=== PATIENT | male | born 1975 | race African-American/Black ===

== ENCOUNTER 2023-03-20 12:00 | Observation (INO) | payer BC, OTHER, SELFPAY ==
[2023-03-20] VITALS (9 sets, daily range): BP systolic 158–190; BP diastolic 74–128; PULSE 60–98; RESP 15–20; TEMP 36.4–37.2; O2SAT 94–100; BMI 34.0
--- NOTE | ~2023-03-20 | CT_ITS ---
. EXAMINATION: CT abdomen pelvis w con DATE: 03/20/2023 14:55 INDICATION: Abdominal swelling for 2 months. Vomiting this morning. Abdominal pain. Constipation. TECHNIQUE: Computed tomography (CT) of the abdomen and pelvis was performed with 100 CC Omnipaque 350 intravenous contrast. Automated exposure control and iterative reconstruction technique were employe d. Exam dose: 1304.89 mGy-cm total exam DLP. COMPARISON: None. FINDINGS: The lung bases are clear of infiltrate or consolidation. Heart size is within normal range. No pericardial or pleural effusion. The liver, gallbladder, bile ducts, pancreas, pancreatic duct and spleen are unremarkable. Normal morphology of the adrenal glands. No renal mass lesion or urinary tract calculus or hydroureteronephrosis. Normal caliber of the abdominal aorta. No intraperitoneal or retroperitoneal or pelvic mass lesion or adenopathy or ascites. Normal appendix. There is a moderately prominent of fecal material in the colon. No bowel obstruction, bowel wall thic kening, pneumatosis or intraperitoneal free air is detected. Small fat-containing bilateral inguinal hernias. Small fat-containing umbilical hernia. Moderately severe degenerative disc disease at L5-S1. IMPRESSION: Normal appendix Moderately prominent amount fecal material in the colon; no bowel obstruction Small bilateral fat-containing inguinal hernias and small fat-containing umbilical hernia Reviewed, dictated and finalized at [facility]. Reviewed, dictated and finalized at [facility]. IMPRESSION: Normal appendix Moderately prominent amount fecal material in the colon; no bowel obstruction Small bilateral fat-containing inguinal hernias and small fat-containing umbili eliceo hernia
--- NOTE | 2023-03-20 14:01 | ED.ABDPAIN ---
HPI - Abdominal Pain General Chief Complaint: Abdominal Pain <Ignacia Ritter PA-C - Last Filed: 03/20/23 20:34> Stated Complaint: abd pain/swelling <Ignacia Ritter PA-C - Last Filed: 03/20/23 20:34> Time Seen by Provider: 03/20/23 12:46 <Ignacia Ritter PA-C - Last Filed: 03/20/23 20:34> History of Present Illness HPI narrative: 48-year-old male reports for evaluation of abdominal pain and swelling for the past 3 months. He reports the pain is generalized and is a constant dull pain. He has been evaluated by his primary care physician Dr. Wilson and has has ultrasounds and CTs on his abdomen revealing gallstones in February. He had an appointment with Dr. Eloy Denney (surgery) yesterday regarding evaluation of his gallstones. He reports today because the pain is increased and he has new onset vomiting that started yesterday and into today. Reports 3 episodes of emesis yesterday, 5 today. He reports increased bulging in his abdomen to the left and right side. States his last full bowel movement was approximately 3 to 4 weeks ago. He does report intermittent passing of jaya last time was yesterday. He denies melena, hematochezia, hematemesis, fever, body aches or chills. He does report tingling when he urinates. When asked if it feels like he is peeing out knives he is reports yes. He denies urinary frequency or urgency. States he gets tested for STDs frequently, last test were in January and came back negative. He denies any sexual contact since he was previously STD tested but is opting for STD testing at this time. He denies penile or scrotal lesions, rashes, swelling or pain. <Ignacia Ritter PA-C - Last Filed: 03/20/23 20:34> Related Data Allergies/Adverse Reactions: Allergies Allergy/AdvReac Type Severity Reaction Status Date / Time MEDICATION FOR ANESTHESIA Allergy Unknown PRURITIS Uncoded 03/20/23 14:08 <NICOL Mendoza Last Filed: 03/20/23 20:34> Review of Systems Review of Systems: CONSTITUTIONAL: Denies fever, chills EYES: Denies visual changes, redness, or discharge. ENT: Denies rhinorrhea, congestion, sore throat, or otalgia. CARDIOVASCULAR: Denies chest pain, palpitations, or edema. RESPIRATORY: Denies cough or dyspnea. GASTROINTESTINAL: See HPI GENITOURINARY: See HPI SKIN: Denies rash or itching. MUSCULOSKELETAL: Denies back pain, joint pain, or myalgia. NEUROLOGIC: Denies headache, numbness, dizziness, or weakness. PSYCHIATRIC: Denies anxiety or depression. <Ignacia Ritter PA-C - Last Filed: 03/20/23 20:34> [facility] Family History Family History: Family History (Updated 03/20/23 @ 21:05 by Sofia Hugo RN) Other Unknown family medical history <Ignacia Ritter PA-C - Last Filed: 03/20/23 20:34> Social History Social History: Social History Smoking status: Never smoker Alcohol intake: never Substance use: never Substance use type: does not use Lack of Transportation: No Lack of Food: Never True Current Housing: I Have Housing Concerned About Future Housing: No Difficulty Paying Gas/Electric Bills: No Difficulty Paying for Meds: No Currently Unemployed: No Education: Associate Degree Difficulty w/ Childcare or Family Care: No Spiritual care concerns: No <Ignacia Ritter PA-C - Last Filed: 03/20/23 20:34> Exam Narrative: GENERAL: Patient laying on exam bed and appears uncomfortable HEAD: Normocephalic EYES: PERRLA ENT: Nares clear. Mucous membranes moist. Oropharynx without tonsillar hypertrophy exudate or other lesions. NECK: Supple. CHEST: No respiratory distress. Clear to auscultation, no adventitious breath sounds. HEART: Regular rate and rhythm. No murmur heard. Normal peripheral pulses. ABDOMEN: Quiet bowel sounds. Generalized abdominal distension, worse in bilateral flanks. Generalized abdominal tenderness with guarding in
[2023-03-20] MEDS: SODIUM CHLORIDE 0.9% IV 1,000 ML 999 ML IV CONT (14:08)
[2023-03-20] MEDS: HYDROmorphone HCL INJ (*CRX) 1 MG/ML SYR 0.5 MG IV PUSH ×2 (14:09→23:57)
[2023-03-20] MEDS: ONDANSETRON INJ 4 MG/2 ML VIAL IV PUSH (14:09)
[2023-03-20 14:17] LABS: Basophils Percent Auto 0.4 % (0.2-1.2); Eosinophils Percent Auto 0.2 % (0-4.4); Hematocrit 42.4 % (42.0-52.0); Hemoglobin 14.9 g/dL (14.0-18.0); Immature Granulocyte Absolute 0.02 K/mm3 (0.00-0.031); Immature Granulocyte Percent A 0.4 % (0-0.5); Lymphocytes Absolute Auto 1.02 K/mm3 (0.9-3.2); Lymphocytes Percent Auto 19.9 % (18.3-44.2); Mean Corpuscular HGB Conc 35.1 g/dl (32-36); Mean Corpuscular Hemoglobin 30.8 pg (26-34); Mean Corpuscular Volume 87.6 fl (80-100); Mean Platelet Volume 9.6 fl (7.4-10.4); Monocytes Absolute Auto 0.4 K/mm3 (0.1-0.6); Monocytes Percent Auto 6.8 % (2.6-8.5); Neutrophils Absolute Auto 3.7 K/mm3 (1.3-6.7); Neutrophils Percent Auto 72.3 % (45.5-73.1); Platelet Count Result 266 k/mm3 (150-375); Red Blood Count 4.84 M/mm3 (4.6-6.20); Red Cell Distribution Width 12.7 % (11.5-14.5); White Blood Count 5.1 K/mm3 (4.5-10.0)
[2023-03-20 14:26] LABS: Alanine Aminotransferase 31 U/L (6-50); Albumin Level 4.8 g/dL (3.5-5.1); Alkaline Phosphatase 72 U/L (38-126); Anion Gap 14 mmol/L (8-16); Aspartate Amino Transferase 27 U/L (17-59); Bilirubin,Total 0.9 mg/dL (0.2-1.3); Blood Urea Nitrogen 13 mg/dL (9-20); Calcium 8.9 mg/dL (8.4-10.2); Carbon Dioxide 25 mmol/L (22-30); Chloride 107 mmol/L (98-107); Estimated CRCL calculation 130 ml/min; Estimated Glomerular Filt Rate > 60; Glucose 213 mg/dL (65-110); Lipase 250 U/L (23-300); Potassium 3.9 mmol/L (3.4-5.0); Sodium 146 mmol/L (137-145)
[2023-03-20 14:55] LABS: Appearance Urine Clear (Clear); Bacteria Urine None Seen /hpf; Bilirubin Urine Negative (Negative); Blood Urine Negative (Negative); Color Urine Yellow (Yellow); Glucose Urine UA 2+ mg/dL (Negative); Ketones Urine Trace mg/dL (Negative); Leukocyte Esterase Ur Negative LEU/UL (Negative); Nitrate Urine Negative (Negative); Non Pathogenic Casts 0-2; Protein Urine Trace mg/dL (Negative); RBC Urine 0-2 /hpf (0-2); Specific Grav Ur 1.025 (1.001-1.035); Squamous Epithelial Cell Urine None seen /hpf (Few); WBC Urine 0-5 /hpf; pH Urine 6.5 (5.0-9.0)
[2023-03-20 14:59] LABS: Add Urine Microscopic? YES
--- NOTE | 2023-03-20 17:57 | PC.NURSE ---
went to discharge patient and his BP was high. provider made aware and orders put in the orders for home medications. patient states he takes his medications as needed .
[2023-03-20] MEDS: cefTRIAXone 1 GM VIAL 0.5 GM IM (18:00)
[2023-03-20] MEDS: WATER, STERILE FOR INJECTION 10 ML VIAL XX (18:01)
[2023-03-20] MEDS: LOSARTAN POTASSIUM 25 MG TABLET PO (18:17)
[2023-03-20] MEDS: DOXYCYCLINE HYCLATE 100 MG TABLET PO ×2 (18:17→22:34)
--- NOTE | 2023-03-20 18:48 | ECG_ITS ---
Measurements Intervals [place] Rate: 76 P: 47 MS: 167 QRS: 5 QRSD: 103 T: -12 QT: 359 QTc: 406 Interpretive Statements SINUS RHYTHM NONSPECIFIC T-WAVE ABNORMALITY ABNORMAL ECG NO PREVIOUS ECG AVAILABLE FOR COMPARISON Electronically Signed On 03-21-2023 9:35:57 CDT by Bharat Castrejon M.D.
[2023-03-20 18:49] LABS: Glucose Point of Care 195 mg/dl (65-105)
[2023-03-20] MEDS: METOCLOPRAMIDE HCL INJ 10 MG/2 ML VIAL IV PUSH (18:56)
[2023-03-20] MEDS: HALOPERIDOL LACTATE 5 MG/ML VIAL 2 MG IV PUSH (19:24)
[2023-03-20] MEDS: diphenhydrAMINE HCl INJ 50 MG/ML VIAL 25 MG IV PUSH (19:24)
--- NOTE | 2023-03-20 20:24 | PM.IMHP ---
H&P: HPI History of Present Illness Date/Time: 03/20/23 20:24 Chief Complaint: N/V Narrative: This is a 48-year-old male with past medical history significant for type 2 diabetes mellitus, insulin dependent, hypertension, obesity, dyslipidemia. Patient presents to the emergency room due to abdominal pain, constipation, nausea, vomiting, dizziness. Patient states that this has been ongoing for about a week or so. In emergency room patient had several rounds of antiemetics to no avail had an enema and had a bowel movement however patient states that his still not feeling well had another bout of nausea and vomiting. Patient also insisted that he needed treatment for STD he received ceftriaxone and doxycycline. Decision has been made to place the patient in observation for further evaluation management and treatment. EXAMINATION: CT abdomen pelvis w con DATE: 03/20/2023 14:55 INDICATION: Abdominal swelling for 2 months. Vomiting this morning. Abdominal pain. Constipation. TECHNIQUE: Computed tomography (CT) of the abdomen and pelvis was performed with 100 CC Omnipaque 350 intravenous contrast. Automated exposure control and iterative reconstruction technique were employed. Exam dose:? 1304.89 mGy-cm total exam DLP.? COMPARISON: None. FINDINGS: The lung bases are clear of infiltrate or consolidation. Heart size is within normal range. No pericardial or pleural effusion. The liver, gallbladder, bile ducts, pancreas, pancreatic duct and spleen are unremarkable. Normal morphology of the adrenal glands. No renal mass lesion or urinary tract calculus or hydroureteronephrosis. Normal caliber of the abdominal aorta. No intraperitoneal or retroperitoneal or pelvic mass lesion or adenopathy or ascites. Normal appendix. There is a moderately prominent of fecal material in the colon. No bowel obstruction, bowel wall thickening, pneumatosis or intraperitoneal free air is detected. Small fat-containing bilateral inguinal hernias. Small fat-containing umbilical hernia. Moderately severe degenerative disc disease at L5-S1. IMPRESSION:? Normal appendix Moderately prominent amount fecal material in the colon; no bowel obstruction Small bilateral fat-containing inguinal hernias and small fat-containing umbilical hernia Review of Systems Review of Systems: Nausea, vomiting, abdominal pain, constipation x1 week duration. Constitutional: Constitutional: Denies chills, Denies fatigue, Denies fever(s), Denies malaise, Denies night sweats, Denies poor appetite and Denies weakness Eyes: Eyes: Denies change in vision ENT: Denies dysphagia and Denies odynophagia Cardiovascular: Cardiovascular: Denies chest pain, Denies leg edema, Denies radiating jaw, neck or arm pain and Denies palpitations Respiratory: Respiratory: Denies chest congestion, Denies cough and Denies excessive phlegm production Gastrointestinal: Gastrointestinal: Reports abdominal pain, Reports constipation, Reports GI cramping, Denies dyspepsia, Denies heartburn, Reports nausea and Reports vomiting Genitourinary: Genitourinary: Denies dysuria Musculoskeletal: Musculoskeletal: Denies myalgias Integumentary/Breasts: Skin/Breast: Denies rash Neurologic: Denies focal weakness and Denies Sensory deficit (Neuro) Psychiatric: Psychiatric: Reports no additional psychiatric complaints and Reports as per HPI Endocrine: Endocrine: Denies cold intolerance, Denies flushing, Denies heat intolerance, Denies polyphagia, Denies polydipsia and Denies palpitations Hematologic/Lymphatic: Hematologic/Lymphatic: Reports no additional hematologic/lymphatic complaints and Reports as per HPI Allergic/Immunologic: Allergic/Immunologic: Reports no additional allergic/immunologic complaints and Reports as per HPI PMF Family History Family History (Updated 03/20/23 @ 21:05 by Sofia Hugo RN) Other Unknown family medical history Social History Social History (Reviewed 03/20/23 @ 14:
--- NOTE | 2023-03-20 20:55 | ADMGEN ---
This patient, Kennedy Matthews, was admitted to 2 Medical Room 259-. Patient/family oriented to hospital policies and general routines including ID bracelet, bed and alarms, visiting hours, pain management, procedures, bathroom and other care routines, personal items, smoking policy, room service/diet, and visiting hours. Information on how to activate the Rapid Response Team has been discussed. Patient/Family are encouraged to report perceived risks to care and to ask questions if they do not understand what they are told or what they should do.
--- NOTE | 2023-03-20 20:58 | PC.NURSE ---
Pt has not been taking his medication for the last couple of months and has not been monitoring his glucose levels. Pt does not recall medication that he had been taking.
[2023-03-20] MEDS: SODIUM CHLORIDE 0.9% IV 1,000 ML 125 ML IV CONT (21:37)
[2023-03-20] MEDS: hydrALAZINE HCL 20 MG/ML VIAL 10 MG IV PUSH (21:40)
[2023-03-20] MEDS: MAGNESIUM HYDROXIDE SUSP 30 ML UDC PO (23:46)
[2023-03-20] MEDS: MAGNESIUM CITRATE 300 ML BTL 150 ML PO (23:46)
[2023-03-20] MEDS: LACTATED RINGERS 1,000 ML 100 ML IV CONT (23:48)
[2023-03-21 00:54] VITALS: BP 180/88
[2023-03-21] MEDS: ONDANSETRON INJ 4 MG/2 ML VIAL IV PUSH ×3 (01:37→20:37)
[2023-03-21 05:36] VITALS: BP 165/87; PULSE 92; RESP 18; TEMP 37.1; O2SAT 98
--- NOTE | 2023-03-21 05:42 | PC.NURSE ---
Scanned magnesium citrate medication and gave to pt. Pt was only able to drink approx. 50 mLs from the 150 mLs administered since time of administration. Per pt had 3 episodes of emesis in total tonight.
[2023-03-21] MEDS: HYDROmorphone HCL INJ (*CRX) 1 MG/ML SYR 0.5 MG IV PUSH ×3 (05:51→20:38)
[2023-03-21 08:01] LABS: Glucose Point of Care 181 mg/dl (65-105)
[2023-03-21] MEDS: ENOXAPARIN 40 MG/0.4 ML SYRINGE SUB-Q (08:47)
[2023-03-21] MEDS: INSULIN ASPART (*BKC) 100 UNITS/ML 6 UNITS SUB-Q ×3 (08:57→17:12)
[2023-03-21] MEDS: amLODIPine BESYLATE 5 MG TABLET 10 MG PO (09:45)
--- NOTE | 2023-03-21 11:34 | PM.DS ---
DS: Admitting Diagnosis Discharge Date 03/21/2023 Admitting Diagnosis Intractable nausea vomiting DS: Discharge Diagnosis Discharge Diagnosis (1) Intractable vomiting with nausea: Code(s): R11.2 - Nausea with vomiting, unspecified Status: Acute (2) Hypertensive urgency: Code(s): I16.0 - Hypertensive urgency Status: Acute DS: Summary Hospital Course Hospital Course: This is a 48-year-old male with past medical history significant for type 2 diabetes mellitus, insulin dependent, hypertension, obesity, dyslipidemia.? Patient presents to the emergency room due to abdominal pain, constipation, nausea, vomiting, dizziness.? Patient states that this has been ongoing for about a week or so.? In emergency room patient had several rounds of antiemetics to no avail had an enema and had a bowel movement however patient states that his still not feeling well had another bout of nausea and vomiting.? Patient also insisted that he needed treatment for STD he received ceftriaxone and doxycycline.? Decision has been made to place the patient in observation for further evaluation management and treatment. CT abdomen pelvis w contrast: IMPRESSION:? Normal appendix Moderately prominent amount fecal material in the colon; no bowel obstruction Small bilateral fat-containing inguinal hernias and small fat-containing umbilical hernia Patient is stable this morning. He has been started on diet. Once he tolerates his diet he will be discharged home. Patient's blood pressures remain high here but he is on some diuretic at home which he has not taken for a few days. Will not start him on any new medication at this time. Patient advised to follow-up with PCP regarding blood pressure management. Time Spent with Patient Time attestation: Total time spent providing and/or coordinating discharge services: DS: Data Data Completed and Pending Labs on day of discharge: Labs from last 24 hours 03/21/23 03/20/23 03/20/23 07:59 18:47 14:44 WBC RBC Hgb Hct MCV MCH MCHC RDW Plt Count MPV Immature Gran % (Auto) Neut % (Auto) Lymph % (Auto) Boundary % (Auto) Eos % (Auto) Baso % (Auto) Lymph # (Auto) Boundary # (Auto) Eos # (Auto) Baso # (Auto) Abs Immat Gran (auto) Absolute Neuts (auto) Absolute Nucleated RBC Nucleated RBC % Sodium Potassium Chloride Carbon Dioxide Anion Gap BUN Creatinine Estim Creat Clear Calc Estimated GFR Glucose POC Capillary Glucose 181 H 195 H Calcium Total Bilirubin AST ALT Alkaline Phosphatase Total Protein Albumin Lipase Urine Color Yellow Urine Appearance Clear Urine pH 6.5 Ur Specific [place] 1.025 Urine Protein Trace Urine Glucose (UA) 2+ H Urine Ketones Trace H Ur Blood (Man) Negative Urine Nitrate Negative Urine Bilirubin Negative Urine Urobilinogen 1.0 Leukocyte Esterase Rfl Negative Urine RBC 0-2 Urine WBC 0-5 Ur Squamous Epith Cells None seen Urine Bacteria None seen Urine Casts 0-2 C.trachomatis RNA (TMA) N.gonorrhoeae RNA (TMA) 03/20/23 03/20/23 14:43 14:10 WBC 5.1 RBC 4.84 Hgb 14.9 Hct 42.4 MCV 87.6 MCH 30.8 MCHC 35.1 RDW 12.7 Plt Count 266 MPV 9.6 Immature Gran % (Auto) 0.4 Neut % (Auto) 72.3 Lymph % (Auto) 19.9 Boundary % (Auto) 6.8 Eos % (Auto) 0.2 Baso % (Auto) 0.4 Lymph # (Auto) 1.02 Boundary # (Auto) 0.4 Eos # (Auto) 0.0 Baso # (Auto) 0.0 Abs Immat Gran (auto) 0.02 Absolute Neuts (auto) 3.7 Absolute Nucleated RBC 0.0 Nucleated RBC % 0.0 Sodium 146 H Potassium 3.9 Chloride 107 Carbon Dioxide 25 Anion Gap 14 BUN 13 Creatinine 0.80 Estim Creat Clear Calc 130 Estimated GFR > 60 Glucose 213 H POC Capillary Glucose Calcium 8.9 Total Bilirubin 0.9 AST 27 ALT 31 Alkaline Phosphatase 72
[2023-03-21 11:39] LABS: Glucose Point of Care 196 mg/dl (65-105)
[2023-03-21 13:58] VITALS: BP 130/77; PULSE 81; RESP 18; TEMP 36.7; O2SAT 97
[2023-03-21] MEDS: polyethylene glycoL 3350 17 GM POWD.PACK PO (14:14)
[2023-03-21 14:23] VITALS: O2SAT 97
[2023-03-21 16:39] LABS: Glucose Point of Care 143 mg/dl (65-105)
[2023-03-21] MEDS: PANTOPRAZOLE 40 MG TABLET PO (17:12)
[2023-03-21] MEDS: SUCRALFATE SUSP 100 MG/ML 10 ML UDC 1000 MG PO (20:37)
[2023-03-21 20:39] LABS: Glucose Point of Care 151 mg/dl (65-105)
[2023-03-21 20:48] VITALS: PULSE 96; RESP 18; TEMP 36.9; O2SAT 100
[2023-03-21 21:43] VITALS: BP 162/93
[2023-03-21] MEDS: hydrALAZINE HCL 20 MG/ML VIAL 10 MG IV PUSH (22:14)
[2023-03-21] MEDS: BELLADONNA ALK/PHENOB ELIX 10 ML, MAG HYDROX/ALUMINUM HYD/SIMETH 30 ML, LIDOCAINE HCL 2... PO (23:19)
[2023-03-22] MEDS: ONDANSETRON INJ 4 MG/2 ML VIAL IV PUSH ×2 (02:17→08:51)
[2023-03-22] MEDS: HYDROmorphone HCL INJ (*CRX) 1 MG/ML SYR 0.5 MG IV PUSH ×2 (02:17→08:51)
[2023-03-22] MEDS: hydrALAZINE HCL 20 MG/ML VIAL 10 MG IV PUSH (05:34)
[2023-03-22] MEDS: SUCRALFATE SUSP 100 MG/ML 10 ML UDC 1000 MG PO ×2 (05:34→11:27)
[2023-03-22 05:45] VITALS: BP 180/105; PULSE 85; RESP 18; TEMP 36.7; O2SAT 99
[2023-03-22 08:19] LABS: Glucose Point of Care 173 mg/dl (65-105)
[2023-03-22] MEDS: ENOXAPARIN 40 MG/0.4 ML SYRINGE SUB-Q (08:44)
[2023-03-22] MEDS: amLODIPine BESYLATE 5 MG TABLET 10 MG PO (08:44)
[2023-03-22] MEDS: polyethylene glycoL 3350 17 GM POWD.PACK PO (08:44)
[2023-03-22 08:50] VITALS: RESP 18; O2SAT 99
[2023-03-22] MEDS: PANTOPRAZOLE 40 MG TABLET PO (09:58)
[2023-03-22 11:54] LABS: Glucose Point of Care 211 mg/dl (65-105)
[2023-03-22] MEDS: INSULIN ASPART (*BKC) 100 UNITS/ML 6 UNITS SUB-Q (11:56)
== END 2023-03-22 12:50 | disposition home or self-care (01) ==
LOC: ANHED 19:06 → ANH2MED 20:31
PROVIDERS: Admitting Provider Internal Medicine; Emergency Provider Physician Assistant; PCP Internal Medicine; Visit Provider Hospitalist
DX: I16.0 Hypertensive urgency (principal); K59.00 Constipation, unspecified; K81.0 Acute cholecystitis; E11.9 Type 2 diabetes mellitus without complications; R30.0 Dysuria; K40.90 Unilateral inguinal hernia, without obstruction or gangrene, not specified as recurrent; K42.9 Umbilical hernia without obstruction or gangrene; Z91.148 Patient's other noncompliance with medication regimen for other reason; M51.37 Other intervertebral disc degeneration, lumbosacral region; R94.31 Abnormal electrocardiogram [ECG] [EKG]; E66.9 Obesity, unspecified; Z68.34 Body mass index [BMI] 34.0-34.9, adult; E78.5 Hyperlipidemia, unspecified; Z79.4 Long term (current) use of insulin
CPT/HCPCS: 36415; 74177; 80053; 81001; 82948; 83690; 85025; 87491; 87591; 93005; 96361; 96372; 96374; 96375; 96376; 99285; A9270; G0378; J0360; J0696; J1170; J1200; J1630; J1650; J1815; J2405; J2765; J7030; J7120; Q9967